=== PATIENT | male | born 1960 | race American Indian/Alaskan Native ===

== ENCOUNTER 2019-02-09 14:24 | Emergency (ER) | payer OTHER ==
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
--- NOTE | 2019-02-09 16:10 | XRay Report ---
PROCEDURE: XR SPINE LUMBOSACRAL 2-3V HISTORY: low back pain FINDINGS: AP and lateral views of the lumbar spine were acquired and demonstrate no fracture of the l umbar spine. There is loss of intervertebral disc space height at L4-5 with anterior endplate remodel ing. At T9-T10 and T10-11 there is anterior endplate remodeling. IMPRESSION: No fracture is seen in the lumbar spine This document is electronically signed by Robe Guy MD., February 09 2019 04:08:58 PM ET
--- NOTE | 2019-02-09 16:11 | XRay Report ---
PROCEDURE: XR SPINE CERVICAL 2-3V HISTORY: neck pain FINDINGS: AP, lateral and open-mouth views of the cervical spine were acquired. No fracture is seen i n the cervical spine. The prevertebral soft tissues are within normal limits. IMPRESSION: No fracture is seen in the cervical spine This document is electronically signed by Robe Guy MD., February 09 2019 04:09:34 PM ET
--- NOTE | 2019-02-09 16:12 | XRay Report ---
PROCEDURE: XR KNEE 3V RT HISTORY: knee pain FINDINGS: AP, lateral and oblique views of the right knee were acquired and straight no fracture or m alalignment of the right knee. There is an enthesophyte at the quadriceps tendon insertion. IMPRESSION: No fracture is seen in the right knee This document is electronically signed by Robe Guy MD., February 09 2019 04:10:12 PM ET
[2019-02-09] MEDS ORDERED: IBUPROFEN PO ONE (18:36)
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
[2019-02-09 19:04] VITALS: BP 158/107
== END 2019-02-09 19:03 | disposition home or self-care (01) ==
LOC: ED 14:24
DX: S39.012A Strain of muscle, fascia and tendon of lower back, initial encounter (principal); S16.1XXA Strain of muscle, fascia and tendon at neck level, initial encounter; M25.511 Pain in right shoulder; M25.512 Pain in left shoulder; M25.561 Pain in right knee; G44.209 Tension-type headache, unspecified, not intractable; Z90.49 Acquired absence of other specified parts of digestive tract; V89.2XXA Person injured in unspecified motor-vehicle accident, traffic, initial encounter; Y93.89 Activity, other specified; Y92.488 Other paved roadways as the place of occurrence of the external cause; Y99.8 Other external cause status
CPT/HCPCS: 72040; 72100; 99283

== ENCOUNTER 2020-12-08 08:24 | Emergency (ER) | payer SELFPAY ==
[2020-12-08] MEDS ORDERED: LIDOCAINE (2%) 20 MG/1 ML VIAL 20 ML MDV INFILTRATI ONE ×2 (08:29→08:30)
[2020-12-08] MEDS ORDERED: TETANUS,DIPH,PERTUSS(ACELL) VACCINE 0.5 ML SYRINGE IM ONE ×2 (08:30→11:30)
--- NOTE | 2020-12-08 09:01 | Emergency Department Report ---
- General Chief Complaint: Wound/Laceration Stated Complaint: FINGER LAC Time Seen by Provider: 12/08/20 08:53 Source: patient Mode of arrival: Ambulatory Limitations: No Limitations - History of Present Illness Initial Comments: There is a very pleasant 60-year-old male who presents to the emergency department the chief complaint of a right hand injury. Patient reports he was t rying to move a refrigerator by himself from upstairs to downstairs and it fell crushing the tip of his right third and fourth digits. He is unsure of his last tetanus vaccine. He reports the pain is a 9 out of 10 in severity. He denies any other injuries. Denies any his head or losing consciousness. - Related Data Previous Rx's Medication Instructions Recorded Last Taken Type Naproxen [Naprosyn] 500 mg PO BID PRN #20 tablet 02/09/19 Unknown Rx methOCARBAMOL [Robaxin TAB] 500 mg PO Q6H PRN #15 tablet 02/09/19 Unknown Rx HYDROcodone/APAP 5-325 [Mcclellan 1 each PO Q4HR PRN #12 tablet 12/08/20 Unknown Rx 5/325] cephALEXin [Keflex] 500 mg PO Q6HR #20 capsule 12/08/20 Unknown Rx Allergies Allergy/AdvReac Type Severity Reaction Status Date / Time No Known Allergies Allergy Verified 12/08/20 08:31 ED Review of Systems ROS: Stated complaint: FINGER LAC Other details as noted in HPI Comment: All other systems reviewed and negative Constitutional: denies: chills, fever Eyes: denies: eye pain, eye discharge, vision change ENT: denies: ear pain, throat pain Respiratory: denies: cough, shortness of breath, wheezing Cardiovascular: denies: chest pain, palpitations Endocrine: no symptoms reported Gastrointestinal: denies: abdominal pain, nausea, diarrhea Genitourinary: denies: urgency, dysuria Musculoskeletal: as per HPI. denies: back pain, joint swelling, arthralgia Skin: denies: rash, lesions Neurological: denies: headache, weakness, paresthesias Psychiatric: denies: anxiety, depression Hematological/Lymphatic: denies: easy bleeding, easy bruising ED Past Medical Hx - Past Medical History Previous Medical History?: No - Surgical History Past Surgical History?: Yes Hx Appendectomy: Yes - Social History Smoking Status: Never Smoker Substance Use Type: None - Medications Home Medications: Home Medications Medication Instructions Recorded Confirmed Last Taken Type Naproxen [Naprosyn] 500 mg PO BID PRN #20 tablet 02/09/19 Unknown Rx methOCARBAMOL [Robaxin TAB] 500 mg PO Q6H PRN #15 tablet 02/09/19 Unknown Rx HYDROcodone/APAP 5-325 [Mcclellan 1 each PO Q4HR PRN #12 tablet 12/08/20 Unknown Rx 5/325] cephALEXin [Keflex] 500 mg PO Q6HR #20 capsule 12/08/20 Unknown Rx ED Physical Exam - General Limitations: No Limitations General appearance: alert, in no apparent distress - Head Head exam: Present: atraumatic, normocephalic - Eye Eye exam: Present: normal appearance, PERRL, EOMI Pupils: Present: normal accommodation - ENT ENT exam: Present: normal exam, normal orophraynx, mucous membranes moist - Neck Neck exam: Present: normal inspection, full ROM. Absent: tenderness, meningismus - Respiratory Respiratory exam: Present: normal lung sounds bilaterally. Absent: respiratory distress, wheezes, rales, rhonchi, stridor - Cardiovascular Cardiovascular Exam: Present: regular rate, normal rhythm, normal heart sounds. Absent: systolic murmur, diastolic murmur, rubs, gallop - GI/Abdominal GI/Abdominal exam: Present: soft, normal bowel sounds. Absent: distended, tenderness, guarding, rebound, rigid - Rectal Rectal exam: Present: deferred - Extremities Exam Extremities exam: Present: full ROM, tenderness (Deep lacerations on the dorsal side of the third and fourth digits of the right hand at the base of the nailbed that displaces the nail. There is distal sensation and normal capillary refill in the tip of the finger. There is no active bleeding.). Absent: normal inspection - Back Exam Back exam: Present: normal inspection - Neurological Exam Neurological exam: Present: alert, oriented X3 - Psychiatric Psychiatric exam: Present: normal affect, normal mood - Skin Skin exam: Present: warm, dry, intact, normal color. Absent: rash ED Course Vital Signs 12/08/20 12/08/20 08:26 10:05 Temperature 98.8 F 98.1 F Pulse Rate 95 H 77 Respiratory 16 18 Rate Blood Pressure 140/93 Blood Pressure 143/96 [Left] O2 Sat by Pulse 99 100 Oximetry - Reevaluation(s) Reevaluation #1: 12/08/20 09:00 Patient arrived in triage with severe pain in his fingers. There is a small trickle of bleeding initially but no pulsatile bleeding. I first did a digital block on the third and fourth digit of the right hand with 2% lidocaine without epinephrine after cleaning the skin thoroughly with alcohol and Betadine. Once patient was fully numbed I then irrigated with approximately 400 mL of normal saline and Betadine to cleanse the wound. A sterile dressing was then applied. X-ray, IV Ancef and a tetanus vaccine were then ordered. Spoke with attending we will also review x-rays. Plan to loosely close the wound and further irrigate and place patient on oral antibiotics, pain medication and orthopedic follow-up as long as there are no other complications found on subsequent imagin g or exam. Reevaluation #2: 12/08/20 11:06 Dr. Carlos reviewed the wound at the bedside and recommended copious irrigation and debridement. The wound was loosely closed after irrigation with 2000 mL of sterile saline and a repeat x-ray was ordered. Patient tolerated this well With no complications. See procedure note. Spoke with orthopedic surgeon. - Consultations Consultation #1: 12/08/20 11:[address] Fitzgerald with orthopedic surgery and he stated the patient could be discharged home and follow-up in his office either tomorrow or sometime this week. He need to call first thing tomorrow. He was agreeable to the plan and treatment we gave in the emergency department and had no other further recommendations emergently. - Laceration /Wound Repair Right Finger Wound Location: upper extremity (Right third and fourth finger) Wound Length (cm): 6 (3 cm each finger) Wound's Depth, Shape: linear, nail-avulsed, contused tissue Wound Explored: no foreign body removed Irrigated w/ Saline (ccs): 2,500 Betadine Prep?: Yes Anesthesia: 1% Lidocaine (digital block ) Volume Anesthetic (ccs): 10 Wound Debrided: minimal Wound Repaired With: sutures Suture Size/Type: 5:0, proline Number of Sutures: 10 Sterile Dressing Applied?: Yes Progress: The wound was first thoroughly irrigated with normal saline and debrided. The wound was loosely closed with Prolene sutures. Sterile dressing was applied and a splint was applied by RN for support. Patient tolerated this very well. The distal tuft fractures were realigned and x-ray confirmed realignment. ED Medical Decision Making - Radiology Data Radiology results: report reviewed, image reviewed Ordering Physician: JOSE C MCLAIN Date of Service: 12/08/20 Procedure(s): XR hand 3+V RT Accession Number(s): [id number] cc: JOSE C MCLAIN Fluoro Time In Minutes: RIGHT HAND 3 VIEWS 0852 INDICATION: crush injury 3rd and 4th digit COMPARISON: None available. FINDINGS: The distal phalanges of both the middle and ring fingers show compound fractures with lacerations and comminuted fractures at the base of the amira. In the middle finger there is slight ventral displacement and angulation with slight ventral angulation in the ring finger. No dislocation is seen. No other fractures are noted. Signer Name: Noel Doshi MD Signed: 12/08/2020 9:31 AM Workstation Name: [id number] Transcribed By: GJ Dictated By: Noel Doshi MD Electronically Authenticated By: Noel Doshi MD Signed Date/Time: 12/08/20930 - Medical Decision Making Patient nontoxic in no acute distress. He had a traumatic near amputation of the right third and fourth digit. Tetanus is updated. IV Ancef was given. The wound was copiously irrigated with normal saline and debrided as well as loosely closed. I spoke with orthopedist Dr. Fitzgerald who will follow up with the patient this week. He denies any further recommendations in the emergency department. Patient be given oral antibiotics, pain medication and strict return precautions any change or worsening symptoms. He verbalized understand the diagnosis, treatment and follow-up instructions and all of his questions were answered. Discussed with attending who also saw the patient at bedside. - Differential Diagnosis Laceration, avulsion, nailbed injury, fracture Critical care attestation.: If time is entered above; I have spent that time in minutes in the direct care of this critically ill patient, excluding procedure time. ED Disposition Clinical Impression: Open fracture of finger of right hand Qualifiers: Encounter type: initial encounter Finger: middle finger Phalanx: distal Fracture alignment: displaced Qualified Code(s): S62.632B - Displaced fracture of distal phalanx of right middle finger, initial encounter for open fracture Fracture of finger, distal phalanx, right, open Qualifiers: Encounter type: initial encounter Finger: ring finger Fracture alignment: displaced Qualified Code(s): S62.634B - Displaced fracture of distal phalanx of right ring finger, initial encounter for open fracture Disposition: TO HOME OR SELFCARE Is pt being admited?: No Condition: Stable Instructions: Finger Fracture, Adult, [id number], Finger Fracture, Adult Prescriptions: cephALEXin [Keflex] 500 mg PO Q6HR #20 capsule HYDROcodone/APAP 5-325 [Mcclellan 5/325] 1 each PO Q4HR PRN #12 tablet PRN Reason: Pain Referrals: CHRISTIAN FITZGERALD MD [Staff Physician] - 3-5 Days Time of Disposition: 12:05
--- NOTE | 2020-12-08 09:35 | XRay Report ---
RIGHT HAND 3 VIEWS 0852 INDICATION: crush injury 3rd and 4th digit COMPARISON: None available. FINDINGS: The distal phalanges of both the middle and ring fingers show compound fractures with lacer ations and comminuted fractures at the base of the amira. In the middle finger there is slight ventra l displacement and angulation with slight ventral angulation in the ring finger. No dislocation is se en. No other fractures are noted. Signer Name: Noel Doshi MD Signed: 12/08/2020 9:31 AM Workstation Name: [id number]
[2020-12-08] MEDS ORDERED: [UNRECOGNIZED DRUG - OTHER] IR ONE (10:09)
[2020-12-08 10:20] VITALS: BP 143/96
[2020-12-08] MEDS ORDERED: SODIUM CHLORIDE 0.9% IRRIG SOLN 2000 ML IR SCH (11:00)
--- NOTE | 2020-12-08 11:48 | XRay Report ---
RIGHT HAND 2 VIEWS 1054 INDICATION: s/p closure/reduction COMPARISON: 0852 FINDINGS: Comminuted compound fractures of the distal phalanges of the middle and ring fingers are ag ain seen. Better approximation of fragments is seen. Only slight ventral angulation and displacement are noted. Signer Name: Noel Doshi MD Signed: 12/08/2020 11:44 AM Workstation Name: [id number]
== END 2020-12-08 13:15 | disposition home or self-care (01) ==
LOC: ED 08:24
DX: S62.634B Displaced fracture of distal phalanx of right ring finger, initial encounter for open fracture (principal); S62.632B Displaced fracture of distal phalanx of right middle finger, initial encounter for open fracture; Z79.899 Other long term (current) drug therapy; Z90.49 Acquired absence of other specified parts of digestive tract; X58.XXXA Exposure to other specified factors, initial encounter; Y93.89 Activity, other specified; Y92.89 Other specified places as the place of occurrence of the external cause; Y99.8 Other external cause status
CPT/HCPCS: 12002; 73120; 73130; 90471; 90715; 96374; 99283; J0690

== ENCOUNTER 2020-12-11 11:18 | Emergency (ER) | payer SELFPAY ==
--- NOTE | 2020-12-11 11:26 | Emergency Department Report ---
Chief Complaint: Laceration/Recheck/Suture Stated Complaint: SUTURE REMOVAL Time Seen by Provider: 12/11/20 11:22 - HPI History of Present Illness: Patient is a 60-year-old male presents emergency room for suture removal. He was evaluated in the emergency department on 12/08/2020 and had open fractures at that time which were repaired in the emergency department he was advised to follow-up with Dr. Fitzgerald, orthopedic as soon as possible. I advised patient that he needs to see orthopedic doctor and that his sutures have only been in for 3 days. Patient states that "I do not want to see an orthopedic doctor and that is my choice." I discussed with patient the severity of having an open fracture and I discussed the severe importance of following up with orthopedic doctor. I discussed the patient that he has risk of loss of limb, severe infection, loss of quality of life, loss of mobility of the digits, patient continues to say I am not following up with orthopedic doctor,this conversation was witnessed by PRABHAKAR Macias and saravanan Heard. he patient is alert and oriented x3. The patient exhibits decision-making capacity. I advised patient that the sutures cannot be removed as it is only been 3 days and that it has not properly healed. I advised patient that it takes at least 10 to 14 days.. Vitals are stable On exam: Patient has the third and fourth digit wrapped in gauze, he is moving the digits without difficulty, he has neurovascularly intact, he is supposed to be in finger splints but is not currently in splints advised patient that he needs to follow-up with orthopedic doctor discussed with patient that it is too early to remove sutures MSE screening note: Focused history and physical exam performed. Due to findings the following was ordered: ED Disposition for MSE Clinical Impression: Encounter for medical screening examination Disposition: Z- MED SCREENING EXAM-LEFT Is pt being admited?: No Does the pt Need Aspirin: No Condition: Stable Additional Instructions: Please follow-up with orthopedic doctor. Sutures cannot be removed for 10 to 14 days. Return to emergency room for any new or worsening symptoms Referrals: CHRISTIAN FITZGERALD MD [Staff Physician] - [facility] Time of Disposition: 11:30 Print Language: OCCITAN
[2020-12-11 11:31] VITALS: BP 133/89
== END 2020-12-11 11:35 | disposition left against medical advice (07) ==
LOC: ED 11:18
DX: Z00.00 Encounter for general adult medical examination without abnormal findings (principal); Z53.21 Procedure and treatment not carried out due to patient leaving prior to being seen by health care provider

== ENCOUNTER 2020-12-22 16:20 | Emergency (ER) | payer SELFPAY ==
--- NOTE | 2020-12-22 16:35 | Emergency Department Report ---
Suture/Staple Removal - HPI Chief Complaint: Laceration/Recheck/Suture Stated Complaint: SUTURE REMOVAL Time Seen by Provider: 12/22/20 16:32 When Sutures or Roro Placed: >14 Days Ago Wound Location: Right hand the third and fourth digit status post suture placement with maritza ED Review of Systems ROS: Stated complaint: SUTURE REMOVAL Other details as noted in HPI Comment: All other systems reviewed and negative ED Past Medical Hx - Surgical History Hx Appendectomy: Yes - Social History Smoking Status: Never Smoker Substance Use Type: Alcohol - Medications Home Medications: Home Medications Medication Instructions Recorded Confirmed Last Taken Type Naproxen [Naprosyn] 500 mg PO BID PRN #20 tablet 02/09/19 Unknown Rx methOCARBAMOL [Robaxin TAB] 500 mg PO Q6H PRN #15 tablet 02/09/19 Unknown Rx HYDROcodone/APAP 5-325 [[place] 1 each PO Q4HR PRN #12 tablet 12/08/20 Unknown Rx 5/325] cephALEXin [Keflex] 500 mg PO Q6HR #20 capsule 12/08/20 Unknown Rx Suture Removal Exam - Exam General: Vital signs noted. No distress. Alert and acting appropriately. Wound: No Pathologic Erythema, No Tenderness, No Drainage, No Pus, No Wound Dehiscence Other Systems: All other systems reviewed and are unremarkable. - Procedure Description Procedures done: Sutures removed from the third and fourth phalanges with no complications. The wound was inspected by myself and the patient to ensure that all sutures were removed. Small amount of Dermabond was placed at one site skin bleeding but there was no wound dehiscence. Critical care attestation.: If time is entered above; I have spent that time in minutes in the direct care of this critically ill patient, excluding procedure time. ED Disposition Clinical Impression: Visit for suture removal Disposition: DC-01 TO HOME OR SELFCARE Is pt being admited?: No Does the pt Need Aspirin: No Condition: Stable Instructions: Wound Closure Removal, Care After, Incision Care, Adult Additional Instructions: All the sutures were removed no complications. Small amount of Dermabond was placed site for scant bleeding which will spontaneously resolve itself with no intervention required. Please keep wound clean and dry. Referrals: [facility] [Provider Group] - 3-5 Days
[2020-12-22 16:47] VITALS: BP 139/91
== END 2020-12-22 16:45 | disposition home or self-care (01) ==
LOC: ED 16:20
DX: Z13.9 Encounter for screening, unspecified (principal); Z48.02 Encounter for removal of sutures
CPT/HCPCS: 99282